=== PATIENT | male | born 1990 | race Caucasian/White ===

== ENCOUNTER 2023-09-20 01:49 | Emergency (ER) | payer BC, SELFPAY ==
[2023-09-20 01:51] VITALS: BP 148/110
[2023-09-20 02:40] VITALS: BMI 29.6
[2023-09-20] MEDS: NSS 1000 IV (02:44)
[2023-09-20 02:52] LABS: % Basophils 0.5 % (0-2); % Eosinophils 2.4 % (0-6); % Immature Granulocytes 0.2 % (0-0.5); % Lymphocytes 48.3 % (20.5-51.1); % Monocytes 10.8 % (1.7-9.3); % Neutrophils 37.8 % (42.2-75.2); Absolute Eosinophils 0.2 10^3/uL (0-0.7); Absolute Lymphocytes 4.2 10^3/uL (1.2-3.4); Absolute Monocytes 0.9 10^3/uL (0.1-0.6); Absolute Neutrophils 3.3 10^3/uL (1.4-6.5); Hematocrit 47.6 % (39.0-52.0); Hemoglobin 17.3 g/dL (13.0-18.0); Mean Corp Hgb Conc. 36.3 g/dL (33.0-37.0); Mean Platelet Volume 8.9 fL (7.4-10.4); Nucleated Red Blood Cells % 0 % (-); Platelet Count 264 10^3/uL (130-400); Red Blood Cell Count 5.41 10^6/uL (4.70-6.10); Red Cell Dist. Width 12.5 % (11.5-14.5); White Blood Cell Count 8.7 10^3/uL (4.8-10.8)
[2023-09-20 03:05] LABS: ALT (SGPT) 38 U/L (0-50); AST (SGOT) 29 U/L (17-59); Albumin 4.7 g/dl (3.5-5.0); Alkaline Phosphatase 81 U/L (38-126); Blood Urea Nitrogen 21 mg/dl (9-20); Calcium 9.6 mg/dl (8.4-10.2); Carbon Dioxide 31 mmol/L (22-30); Chloride 97 mmol/L (98-107); Creatine Phosphokinase 162 U/L (55-170); Estimated Creatinine Clearance 104 ml/min; Glucose 93 mg/dl (70-99); Sodium 135 mmol/L (135-145); Total Bilirubin 0.6 mg/dl (0.2-1.3); Total Protein 7.4 g/dl (6.3-8.2); eGFR > 60.00
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
[2023-09-20 03:17] LABS: Troponin I < 0.012 ng/ml
[2023-09-20 03:42] VITALS: BP 139/87
--- NOTE | 2023-09-20 03:49 | EDRN ---
Report received, introduced myself o patient, reports fluids have helped
[2023-09-20 04:00] VITALS: BP 131/85
--- NOTE | 2023-09-20 04:29 | EDRN ---
Went over blood results with patient, and provided water.
== END 2023-09-20 05:16 | disposition home or self-care (01) ==
LOC: EMR 01:49
PROVIDERS: EMERGENCY PHYSICIAN Student in an Organized Health Care Education/Training Program
DX: E86.0 Dehydration (principal); M25.512 Pain in left shoulder; I10 Essential (primary) hypertension; F90.9 Attention-deficit hyperactivity disorder, unspecified type; F41.9 Anxiety disorder, unspecified; Z87.820 Personal history of traumatic brain injury; Z87.891 Personal history of nicotine dependence
CPT/HCPCS: 99284; 80053; 82550; 84484; 85025; 93005

== ENCOUNTER 2023-12-06 20:44 | Emergency (ER) | payer BC, SELFPAY ==
[2023-12-06 20:45] VITALS: BP 169/110
[2023-12-06 22:12] VITALS: BMI 29.4
[2023-12-06 22:15] VITALS: BP 153/92
[2023-12-06 22:16] VITALS: BP 153/92
[2023-12-06 22:33] LABS: % Basophils 0.6 % (0-2); % Eosinophils 0.7 % (0-6); % Immature Granulocytes 0.3 % (0-0.5); % Lymphocytes 36.5 % (20.5-51.1); % Monocytes 9.2 % (1.7-9.3); % Neutrophils 52.7 % (42.2-75.2); Absolute Eosinophils 0.1 10^3/uL (0-0.7); Absolute Lymphocytes 2.6 10^3/uL (1.2-3.4); Absolute Monocytes 0.7 10^3/uL (0.1-0.6); Absolute Neutrophils 3.8 10^3/uL (1.4-6.5); Hematocrit 46.7 % (39.0-52.0); Hemoglobin 16.6 g/dL (13.0-18.0); Mean Corp Hgb Conc. 35.5 g/dL (33.0-37.0); Mean Corpuscular Hgb 31.5 pg (27.0-31.0); Mean Corpuscular Volume 88.6 fL (80.0-94.0); Mean Platelet Volume 9.1 fL (7.4-10.4); Nucleated Red Blood Cells % 0 % (-); Platelet Count 291 10^3/uL (130-400); Red Blood Cell Count 5.27 10^6/uL (4.70-6.10); Red Cell Dist. Width 12.9 % (11.5-14.5); White Blood Cell Count 7.2 10^3/uL (4.8-10.8)
[2023-12-06 22:45] LABS: ALT (SGPT) 42 U/L (0-50); AST (SGOT) 41 U/L (17-59); Albumin 4.8 g/dl (3.5-5.0); Alkaline Phosphatase 73 U/L (38-126); Blood Urea Nitrogen 15 mg/dl (9-20); Calcium 9.5 mg/dl (8.4-10.2); Carbon Dioxide 26 mmol/L (22-30); Chloride 100 mmol/L (98-107); Estimated Creatinine Clearance 104 ml/min; Glucose 105 mg/dl (70-99); Potassium 4.2 mmol/L (3.5-5.1); Sodium 139 mmol/L (135-145); Total Bilirubin 0.4 mg/dl (0.2-1.3); Total Protein 7.7 g/dl (6.3-8.2); eGFR > 60.00
[2023-12-06 22:49] LABS: Erythrocyte Sed Rate 2 mm/hour (0-20)
[2023-12-06 23:00] VITALS: BP 148/95
--- NOTE | 2023-12-06 23:14 | ED.GENMED ---
History of Present Illness
General
Chief Complaint: Abdominal Symptoms
Time Seen by Provider: 12/06/23 22:21
History of Present Illness
History of Present Illness:
33-year-old male history of hypertension, ADHD, anxiety presenting with abdominal pain and diarrhea. Patient states that for the past 2 weeks he has been doing a 'parasite detox' by taking colloidal silver daily. Patient reports 10 episodes of
nonbloody diarrhea daily for the past 2 weeks. Patient states that today he noticed 'larva' on his nicotine gum and was concerned that a parasite in his stomach was moving. Patient reports feeling 'parasite with my esophagus to my neck then my ear
and then went back down'. Patient states that he felt like he saw his abdomen moving. Patient reports history of acid reflux and states this feels different. Patient states that 2 months ago, he had COVID so he took ivermectin that he bought
online for 4 days. Patient states that 2 weeks ago he felt like he was having parasites that he took an additional dose of ivermectin. Patient denies fever, chills, nausea or vomiting. Patient states that he had a endoscopy 3 months ago that
showed 'acid reflux'. Patient states he sometimes smokes marijuana, none recently. Patient denies other drug use. Patient denies recent travel.
Past History
Past History
ED Past Medical History: HTN
ED Past Surgical History: Orthopedic
Social History
Tobacco: Non-smoker
Personal: Single
Living: with roommate
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
Phy Exam
Physical Exam
Physical Exam:
General: Alert, no acute distress
Head: NCAT
Eyes: clear conjunctiva
ENT: TMs clear with no foreign bodies visualized. No foreign bodies visualized in mouth or nose.
Neck: supple
Cardiac: regular rate and rhythm, no murmur
Lungs: clear to auscultation bilaterally. No wheezes, rales, or rhonchi. Speaking full unlabored sentences. No respiratory distress.
Abdomen: soft, nondistended nontender. No rebound or guarding.
MSK: no lower extremity edema bilaterally. No deformity
Skin: warm, dry
Neuro: Alert and oriented x3. no focal deficits
Psych: anxious appearing
Course
Orders/Labs/Results
Orders:
Orders
12/06/23 22:25
CBC/With Diff [Complete Blood Count/With Diff] Urgent
CMP [Comprehensive Metabolic Panel] Urgent
Sed Rate [Erythrocyte Sed Rate] Urgent
Abnormal Lab Results
12/06/23
22:25
MCH 31.5 H pg
(27.0-31.0)
Absolute Monos (auto) 0.7 H 10^3/uL
(0.1-0.6)
Glucose 105 H mg/dl
(70-99)
12/06/23 22:25
12/06/23 22:25
Vital Signs
Initial and Last Documented VS:
Initial Vital Signs
Temp Pulse Resp BP Pulse Ox
98.2 F 131 18 169/110 96
12/06/23 20:45 12/06/23 20:45 12/06/23 20:45 12/06/23 20:45 12/06/23 20:45
Last Documented Vital Signs
Temp Pulse Resp BP Pulse Ox
98.2 F 119 18 138/87 97
12/06/23 20:45 12/06/23 22:16 12/06/23 22:16 12/07/23 00:00 12/06/23 22:52
MDM/Problems Addressed
Differential Diagnosis Includes:
Electrolyte abnormality, transaminitis, FORTUNATO, C. difficile, GERD.
MDM/Problems Addressed:
33-year-old male presenting with concern for parasite. No foreign bodies visualized in ear, nose, or mouth. Abdomen soft nondistended nontender. Labs reviewed, unremarkable. Requested stool sample, patient unable to provide in ER after many
hours. Discussed with patient that low suspicion for parasite given no risk factors. Advised to stop taking colloidal silver and ivermectin, could be contributing to diarrhea. Advised to follow up with GI
*Critical Care Note
Total Time (30-74mins, 75-104mins- exclusive of procedures): Not Applicable
ED Attending Note
-
Portions of this chart may have been created with voice recognition software.� Occasional wrong word or��sound alike� substitutions may have occurred due to the inherent limitations of voice recognition software.
Discharge Plan
Departure
Patient Disposition: Home (Routine Discharge)
Date of Disposition: 12/07/23
Time of Disposition: 00:31
Patient with high blood pressure during this ER visit?: Yes
Discharge Problem:
Diarrhea
Prescriptions:
No Action
Theragen Tablet
1 tab PO DAILY
pantoprazole 40 mg Tablet,Delayed Release (Dr/Ec)
40 mg PO DAILY
dextroamphetamine-amphetamine [Adderall] 20 mg Tablet
10 mg PO BID
Patient Comments:
12/30/22 prescription is written for 1 tablet bid but patient takes 1/2 tab bid instead. Filled on 12/04/22 #60
naproxen sodium [Aleve] 220 mg Tablet
440 mg PO DAILYPRN PRN (Reason: mild pain)
hydrochlorothiazide 25 mg Tablet
25 mg PO DAILY
propranolol 20 mg Tablet
20 mg PO DAILYPRN PRN (Reason: high blood pressure)
amlodipine-benazepril 10-40 mg Capsule
1 cap PO DAILY
Liver Detox capsule
1 cap PO DAILY
testosterone cypionate 200 mg/mL oil
0.5 mg IM Q96H
Patient Comments:
12/30/22 filled on 10/30/22 #10
magnesium oxide 400 mg magnesium Tablet
400 mg PO DAILY
Lion's Saw
2 cap PO DAILY
Moringa capsule
2 cap PO DAILY
Sulforaphane 20 mg
1 cap PO DAILY
Referrals:
Jay Rosales MD [Family Provider] -
Patricia Bah MD [Active] -
Activity Restrictions/Additional Instructions:
Follow up with GI this week
Return to the emergency department for persistent vomiting, fever or new/worsening symptoms
Interventions
Interventions:
*Risk Screen - Suicide Last Done: 12/06/23 20:45
*General Assessment Last Done: 12/06/23 20:45
*Neglect/Abuse Screening Last Done: 12/06/23 20:45
ED- Fall Risk Assessment Last Done: 12/06/23 22:12
*ED COVID-19 Vaccine History Last Done: 12/06/23 20:45
*Nursing Disposition Last Done: 12/07/23 00:38
[facility]nun[facility] Assessment Last Done: 12/06/23 22:12
Discharge Date and Time
Discharge Date/Time: 12/07/23 00:39
Print Language: SYRI[place]
[2023-12-07] VITALS: BP 138/87
== END 2023-12-07 00:39 | disposition home or self-care (01) ==
LOC: EMR 20:44
PROVIDERS: Student in an Organized Health Care Education/Training Program; EMERGENCY PHYSICIAN Emergency Medicine; FAMILY PHYSICIAN Family Medicine
DX: R19.7 Diarrhea, unspecified (principal); R10.9 Unspecified abdominal pain; F90.9 Attention-deficit hyperactivity disorder, unspecified type; I10 Essential (primary) hypertension; F41.9 Anxiety disorder, unspecified; K21.9 Gastro-esophageal reflux disease without esophagitis; Z86.16 Personal history of COVID-19; Z87.820 Personal history of traumatic brain injury
CPT/HCPCS: 99283; 80053; 85025; 85652